=== PATIENT | female | born 1960 | race Caucasian/White ===

== ENCOUNTER → 2017-07-19 | Outpatient (CLI) | payer OTHER ==
[~2017-07-19] MED LIST: IBUPROFEN 600600 M1 PO; NORFLEX100 MG PO; PROAIR HFA8.5 GM; SYNTHROID
== END ==
LOC: RAD 10:01
DX: R05 Cough (principal)

== ENCOUNTER → 2018-01-10 | Outpatient (CLI) | payer OTHER ==
--- NOTE | ~2018-01-10 | 24HR ---
[facility] [employer] ([email or web address]) [place] [address] 24 HR ELECTROCARDIOGRAM REPORT Name: CRISTOPHER HENDRIX Room #: REG CL [facility]#: [id number] Admission: 01/10/18 Attend Phys: Kumar Sebastian, Discharge: Date of : 58 Date of Service: 01/10/18 1202 Report #: [id number] THIS REPORT FOR: //name// [facility] Test Date: 2018-01-10 Test Time: 12:02:00 Pat Name: CRISTOPHER HENDRIX Department: Room: Gender: Head [employer]inder: : 1960 Requested By: Kumar Bledsoe Order Number: [id number] Reading MD: Ivan Reyes Interpretive Statements 1. The study duration was 24 hours and the technical quality was good. 2. Predominant rhythm sinus rhythm at an average heart rate of 94 bpm, range 56-130 bpm. Longest RR interval 1.2 seconds 3. Occasional, isolated atrial premature complexes. No atrial fibrillation or atrial flutter. No heart block. No paroxysmal supraventricular tachycardia 4. Occasional, isolated premature ventricular complexes. No ventricular tachycardia. No ventricular couplets or triplets. 5. No symptoms reported. Electronically Signed On 01-12-2018 16:40:06 CDT by Ivan Reyes [email or web address] <ELECTRONICALLY SIGNED> By: Ivan Reyes MD, [facility] 01/12/18 1640 120 1202 Ivan Reyes MD, [facility] /EPI
== END ==
LOC: CV 01-04 06:58
DX: R55 Syncope and collapse (principal); Z78.0 Asymptomatic menopausal state

== ENCOUNTER → 2020-06-02 | Outpatient (CLI) | payer OTHER | LOC: CAT 10:33 | PROVIDERS: ATTEND Family Medicine | DX: Z13.6 Encounter for screening for cardiovascular disorders (principal); I25.10 Atherosclerotic heart disease of native coronary artery without angina pectoris; E78.00 Pure hypercholesterolemia, unspecified ==